=== PATIENT | male | born 1995 | race African-American/Black ===

== ENCOUNTER 2019-12-21 02:59 | Emergency (ER) | payer BC, SELFPAY ==
--- NOTE | ~2019-12-21 | XR_ITS ---
EXAMINATION: XR chest 2V DATE: 12/21/2019 03:55 INDICATION: Asthma exacerbation. TECHNIQUE: Frontal and lateral views of the chest were obtained. COMPARISON: Chest 2 views 03/15/2007 FINDINGS: The chest demonstrates clear lungs without pneumonia, pleural effusion, or pneumothorax. Th e heart size is normal. IMPRESSION: 1. No acute cardiopulmonary disease. Reviewed, dictated and finalized at location A.
[2019-12-21 03:02] VITALS: BP 134/83; PULSE 66; RESP 18; TEMP 36.3; O2SAT 100
--- NOTE | 2019-12-21 03:03 | ED.GENADULT ---
HPI - General Adult General Chief complaint: Shortness of Breath/Dyspnea Stated complaint: wheezy Time Seen by Provider: 12/21/19 03:02 Source: patient Mode of arrival: ambulatory Limitations: no limitations History of Present Illness HPI narrative: Patient is a pleasant 24-year-old male who presents for evaluation of wheezing. Patient reports he is having mild wheezing, and this is consistent with his asthma. He has been without his albuterol inhaler since his inhaler was left in his car which is currently in an auto shop. Patient reports any true shortness of breath. No fever, chills, no coughing. Patient states he wanted to be seen before his asthma exacerbation worsened. Patient states he does not feel he is having severe symptoms at this time. He denies any chest pain. Related Data Allergies Allergy/AdvReac Type Severity Reaction Status Date / Time amoxicillin Allergy Mild Unknown Verified 12/21/19 03:16 Review of Systems Review of Systems: Narrative: CONSTITUTIONAL: Denies fever CARDIOVASCULAR: Denies chest pain RESPIRATORY: Denies cough or dyspnea. Reports wheezing. GASTROINTESTINAL: Denies abdominal pain SKIN: Denies rash MUSCULOSKELETAL: Denies back pain NEUROLOGIC: Denies headache [facility] Past Medical History Medical History (Updated 12/21/19 @ 03:21 by Rosmery Chawla MD) Asthma Surgical History Surgical History (Updated 12/21/19 @ 03:20 by Rosmery Chawla MD) No pertinent past surgical history Social History Social History (Updated 12/21/19 @ 03:20 by Rosmery Chawla MD) Smoking status: Never smoker Alcohol intake: never Substance use: never Gender identity (if verbalized by the patient): Male Exam Narrative: Exam Narrative: GENERAL: Awake, alert, conversant HEAD: Normocephalic, atraumatic. EYES: PERRLA and EOMI. ENT: Nares clear, no rhinorrhea or epistaxis. Mucous membranes moist. NECK: Supple. CHEST: No respiratory distress, breathing even and non labored, mild expiratory wheezing bilateral bases, no tachypnea HEART: Regular rate, sinus rhythm ABDOMEN:Non distended, non tender EXTREMITIES: Normal range of motion. No edema. SKIN: Warm, dry, no rash. NEURO:No focal deficits. Alert and oriented x3 Course Vital Signs Vital signs: Vital Signs Temperature 36.3 C L 12/21/19 03:02 Pulse Rate 66 12/21/19 03:02 Respiratory Rate 18 12/21/19 03:02 Blood Pressure 134/83 12/21/19 03:02 Pulse Oximetry 100 12/21/19 03:02 Temperature 36.3 C L 12/21/19 03:02 Pulse Rate 64 12/21/19 03:30 Respiratory Rate 16 12/21/19 03:30 Blood Pressure 134/83 12/21/19 03:02 Pulse Oximetry 100 12/21/19 03:02 Medical Decision Making MDM Narrative Medical decision making narrative: Patient presents with mild wheezing. Very mild asthma flare. No respiratory distress or hypoxemia. Chest x-ray without pneumonia. Patient was given DuoNeb treatment, steroid and discharged home with albuterol inhaler refill and steroid dose. Differential Diagnosis Differential Diagnosis: Mild asthma, wheezing, upper respiratory infection Medical Records Medical records reviewed: Yes I reviewed the patient's medical records. Vital Signs Vital Signs: Vital Signs Temperature 36.3 C L 12/21/19 03:02 Pulse Rate 66 12/21/19 03:02 Respiratory Rate 18 12/21/19 03:02 Blood Pressure 134/83 12/21/19 03:02 Pulse Oximetry 100 12/21/19 03:02 Temperature 36.3 C L 12/21/19 03:02 Pulse Rate 64 12/21/19 03:30 Respiratory Rate 16 12/21/19 03:30 Blood Pressure 134/83 12/21/19 03:02 Pulse Oximetry 100 12/21/19 03:02 Lab Data Result diagrams: 12/21/19 03:16 12/21/19 03:16 Labs: Lab Results 12/21/19 12/21/19 Range/Units 03:16 03:16 WBC 7.0 (4.5-10.0) K/mm3 RBC 4.69 (4.6-6.20) M/mm3 Hgb 14.2 (14.0-18.0) g/dL Hct 42.4 (42.0-52.0) % MCV 90.4 (80-100) fl MCH 30.3 (26-34) pg MCHC 33.5 (32-36) g/dl
[2019-12-21] MEDS: predniSONE 20 MG TABLET 60 MG PO (03:15)
[2019-12-21 03:22] LABS: Basophils Absolute Auto 0.1 K/mm3 (0.0-0.1); Basophils Percent Auto 0.7 % (0.2-1.2); Eosinophils Absolute Auto 0.5 K/mm3 (0-0.3); Eosinophils Percent Auto 6.5 % (0-4.4); Hematocrit 42.4 % (42.0-52.0); Hemoglobin 14.2 g/dL (14.0-18.0); Immature Granulocyte Absolute 0.02 K/mm3 (0.00-0.031); Immature Granulocyte Percent A 0.3 % (0-0.5); Lymphocytes Percent Auto 38.4 % (18.3-44.2); Mean Corpuscular HGB Conc 33.5 g/dl (32-36); Mean Corpuscular Hemoglobin 30.3 pg (26-34); Mean Corpuscular Volume 90.4 fl (80-100); Mean Platelet Volume 9.5 fl (7.4-10.4); Monocytes Absolute Auto 0.5 K/mm3 (0.1-0.6); Monocytes Percent Auto 7.5 % (2.6-8.5); Neutrophils Absolute Auto 3.3 K/mm3 (1.3-6.7); Neutrophils Percent Auto 46.6 % (45.5-73.1); Platelet Count Result 248 k/mm3 (150-375); Red Blood Count 4.69 M/mm3 (4.6-6.20); Red Cell Distribution Width 12.7 % (11.5-14.5)
[2019-12-21] MEDS: IPRATROPIUM BR 0.02% INH SOLN 0.5 MG/2.5 ML VIAL 1 MG INHALATION (03:29)
[2019-12-21 03:30] VITALS: PULSE 64; RESP 16
[2019-12-21] MEDS: ALBUTEROL SULFATE NEB 2.5 MG/0.5 ML INH 5 MG INHALATION (03:30)
[2019-12-21 03:33] LABS: Blood Urea Nitrogen 12 mg/dL (9-20); Calcium 9.6 mg/dL (8.4-10.2); Carbon Dioxide 31 mmol/L (22-30); Chloride 103 mmol/L (98-107); Estimated CRCL calculation 79 ml/min; Estimated Glomerular Filt Rate > 60; Glucose 97 mg/dL (75-110); Potassium 4.4 mmol/L (3.4-5.0); Sodium 140 mmol/L (137-145)
[2019-12-21 04:14] VITALS: BP 132/70; PULSE 72; RESP 18; O2SAT 98
== END 2019-12-21 04:16 | disposition home or self-care (01) ==
LOC: ANHED 04:05
PROVIDERS: Emergency Provider Emergency Medicine; PCP Family Medicine
DX: J45.20 Mild intermittent asthma, uncomplicated (principal)
CPT/HCPCS: 36415; 71046; 80048; 85025; 94640; 99284; J7512

== ENCOUNTER 2021-04-08 23:33 | Emergency (ER) | payer BC, SELFPAY ==
[2021-04-08 23:56] VITALS: BP 131/65; PULSE 70; RESP 18; TEMP 36.5; O2SAT 100
== END 2021-04-09 02:45 | disposition left against medical advice (07) ==
PROVIDERS: PCP Family Medicine
DX: I10 Essential (primary) hypertension (principal)
CPT/HCPCS: 99199

== ENCOUNTER 2021-05-19 05:23 | Emergency (ER) | payer BC, SELFPAY ==
[2021-05-19 05:28] VITALS: BP 122/88; PULSE 85; RESP 14; TEMP 36.6; O2SAT 100
--- NOTE | 2021-05-19 05:34 | ED.ASTHMA ---
HPI - Asthma General Chief Complaint: Asthma Stated Complaint: short of breath Time Seen by Provider: 05/19/21 05:28 Source: patient History of Present Illness HPI Narrative: Patient presents with shortness of breath he thinks he is having a asthma exacerbation. Reports longstanding history of asthma he has a as needed albuterol inhaler at home but has not required it in a long time he also believes it is . He has noted increased shortness of breath over the past few days and feels like he is wheezing more he reports mild cough denies fever denies productive cough denies nausea or vomiting denies any known sick contacts. Related Data Allergies Allergy/AdvReac Type Severity Reaction Status Date / Time amoxicillin Allergy Mild Unknown Verified 05/19/21 05:31 Review of Systems Review of Systems: CONSTITUTIONAL: Denies fever, chills, or sweats. EYES: Denies visual changes, redness, or discharge. ENT: Denies rhinorrhea, congestion, sore throat, or otalgia. CARDIOVASCULAR: Denies chest pain, palpitations, or edema. RESPIRATORY: Reports cough and shortness of breath GASTROINTESTINAL: Denies abdominal pain, nausea, vomiting, or diarrhea. GENITOURINARY: Denies dysuria or hematuria. SKIN: Denies rash or itching. MUSCULOSKELETAL: Denies back pain, joint pain, or myalgia. NEUROLOGIC: Denies headache, numbness, dizziness, or weakness. PSYCHIATRIC: Denies anxiety or depression. All systems reviewed & are unremarkable except as noted in HPI and below PMFSH Past Medical History Medical History Asthma Surgical History Surgical History No pertinent past surgical history Social History Social History Smoking status: Never smoker Alcohol intake: never Substance use: never Gender identity (if verbalized by the patient): Male Exam Narrative: GENERAL: Well-appearing, well-nourished, and in no acute distress. HEAD: Normocephalic, atraumatic. EYES: PERRLA and EOMI. ENT: Nares clear, no rhinorrhea or epistaxis. Mucous membranes moist. NECK: Supple. No masses. No JVD CHEST: No respiratory distress no retractions mild diffuse wheezing noted in all lung xavier HEART: Regular rate and rhythm. No murmur heard. Normal peripheral pulses. EXTREMITIES: Normal range of motion. No edema. SKIN: Warm, dry, no rash. NEURO: No focal deficits. Alert and oriented x3. PSYCH: Normal mood and affect. Course Reevaluation(s) Reevaluation #1: Patient reports his symptoms are mild and thinks he will benefit from breathing treatments. He declined steroids Date: 05/19/21 Time: 05:36 Reevaluation #2: Patient reports feeling much improved repeat exam was without wheezing. Patient feels like he can manage the symptoms at home well allowed him to complete DuoNeb therapy and then discharged. Patient comfortable with outpatient plan. Date: 05/19/21 Time: 06:49 Vital Signs Vital signs: Vital Signs Temperature 36.6 C 05/19/21 05:28 Pulse Rate 85 05/19/21 05:28 Respiratory Rate 14 05/19/21 05:28 Blood Pressure 122/88 05/19/21 05:28 Pulse Oximetry 100 05/19/21 05:28 Temperature 36.6 C 05/19/21 05:28 Pulse Rate 72 05/19/21 06:50 Respiratory Rate 16 05/19/21 06:50 Blood Pressure 121/79 05/19/21 05:58 Pulse Oximetry 100 05/19/21 05:58 MDM - Asthma MDM Narrative Medical decision making narrative: H&P as above, vss, pt looks clinically well, exam with mild diffuse wheezing, labs/img considered, symptomatic relief available as needed, patient is to do labs on reevaluation pt continues to looks clinically well wheezing resolved and patient felt much improved. Suspect mild asthma exacerbation, dns pneumonia, severe sepsis, hypoxia. plan to tx/monitor as op w/ pcm f/u findings/plan discussed with pt, pt agree/comfortable with plan, return precautions given
--- NOTE | 2021-05-19 05:52 | PC.NURSE ---
Respiratory at bedside
[2021-05-19 05:54] VITALS: PULSE 60; RESP 20
[2021-05-19 05:58] VITALS: BP 121/79; PULSE 67; RESP 12; O2SAT 100
[2021-05-19] MEDS: ALBUTEROL SULFATE NEB 2.5 MG/0.5 ML INH 10 MG INHALATION (05:58)
[2021-05-19] MEDS: IPRATROPIUM BR 0.02% INH SOLN 0.5 MG/2.5 ML VIAL 1 MG INHALATION (05:58)
[2021-05-19 06:50] VITALS: PULSE 72; RESP 16
== END 2021-05-19 06:59 | disposition home or self-care (01) ==
PROVIDERS: Emergency Provider Emergency Medicine
DX: J45.901 Unspecified asthma with (acute) exacerbation (principal)
CPT/HCPCS: 94640; 99283

== ENCOUNTER 2021-06-23 10:33 | Emergency (ER) | payer BC, SELFPAY ==
--- NOTE | 2021-06-23 10:37 | ED.MALEGU ---
HPI - Male Genitourinary General Chief complaint: Urogenital-Male Stated complaint: STD Time Seen by Provider: 06/23/21 10:37 Source: patient and RN notes reviewed History of Present Illness HPI Narrative: Patient is a 26-year-old male who presents the urgent care with no complaints. Patient states that he just got out of a relationship and wants to have an STD check . Patient denies of any exposure or any complications at this time. Denies of any penile drainage, urinary symptoms, pain with intercourse. No other acute complaints. Patient aware of the plan of care. Some parts of this dictation were generated by voice recognition software and may contain typographical and/or grammatical inaccuracies. Related Data Allergies Allergy/AdvReac Type Severity Reaction Status Date / Time amoxicillin Allergy Mild Unknown Verified 05/19/21 05:31 Review of Systems Review of Systems: CONSTITUTIONAL: Denies fever, chills, or sweats. EYES: Denies visual changes, redness, or discharge. ENT: Denies rhinorrhea, congestion, sore throat, or otalgia. CARDIOVASCULAR: Denies chest pain, palpitations, or edema. RESPIRATORY: Denies cough or dyspnea. GASTROINTESTINAL: Denies abdominal pain, nausea, vomiting, or diarrhea. GENITOURINARY: Denies dysuria or hematuria. SKIN: Denies rash or itching. MUSCULOSKELETAL: Denies back pain, joint pain, or myalgia. NEUROLOGIC: Denies headache, numbness, or weakness. All other systems reviewed are negative, except as documented in HPI. PMFSH Past Medical History Medical History Asthma Surgical History Surgical History No pertinent past surgical history Social History Social History Smoking status: Never smoker Alcohol intake: never Substance use: never Gender identity (if verbalized by the patient): Male Comments At the time of my signature, I reviewed and agree with the nursing past medical, surgical, social, and family history. There is no relevant family history pertinent to the patient complaint. Exam Narrative: GENERAL: This is a well-nourished, well-developed patient, in no apparent distress. HEAD: normocephalic, atraumatic. EYES: PERRL. Sclera clear/white. Vision is grossly intact. EARS: External ears normal NOSE: External nose normal with no obvious nasal discharge, nares without redness, no rhinorrhea. THROAT: Mucous membranes moist NECK: Neck supple CARDIOVASCULAR: Regular rate and rhythm without murmurs, gallops, or rubs. RESPIRATORY: Clear to auscultation. Breath sounds equal bilaterally. No wheezes, rales, or rhonchi. SKIN: warm, intact with no suspicious lesions or rash, good texture and turgor. NEURO: awake, alert, and oriented to person, place and time. There were no obvious focal neurologic abnormalities. EXTREMITIES: No clubbing, cyanosis, or edema. Course Vital Signs Vital signs: Vital Signs Temperature 98.1 F 06/23/21 10:40 Pulse Rate 73 06/23/21 10:40 Respiratory Rate 16 06/23/21 10:40 Blood Pressure 131/77 06/23/21 10:40 Pulse Oximetry 100 06/23/21 10:40 Temperature 98.1 F 06/23/21 10:40 Pulse Rate 73 06/23/21 10:40 Respiratory Rate 16 06/23/21 10:40 Blood Pressure 131/77 06/23/21 10:40 Pulse Oximetry 100 06/23/21 10:40 Reviewed MDM - Male Genitourinary MDM Narrative Medical decision making narrative: Advised the patient to abstain from sexual activity until he gets his results back of his STD check. Patient is aware that there is no necessary treatment at this time considering he has no acute complications or no known contact. Patient agrees to no treatment at this time. Patient is aware that testing takes approximately 1 week to obtain and we will call him with the test results. In the future, paperwork was given in order to follow-up at the local health depar
[2021-06-23 10:40] VITALS: BP 131/77; PULSE 73; RESP 16; TEMP 36.7; O2SAT 100
== END 2021-06-23 10:49 | disposition home or self-care (01) ==
PROVIDERS: Emergency Provider Nurse Practitioner Family
DX: Z11.3 Encounter for screening for infections with a predominantly sexual mode of transmission (principal); J45.909 Unspecified asthma, uncomplicated
CPT/HCPCS: 87491; 87591; 87661; 99213; G0463